=== PATIENT | female | born 1970 | race African-American/Black ===

== ENCOUNTER 2017-09-01 05:15 | Inpatient (IN) | payer OTHER ==
[2017-08-25 12:55] VITALS: BMI 31.8
[2017-09-01] MEDS ORDERED: ROPIVACAINE HCL 0.5% 30ML VIAL ONE (07:49)
[2017-09-01] MEDS ORDERED: MIDAZOLAM HCL 2 MG/2 ML SINGLE DOSE VIAL ONE (07:54)
[2017-09-01] MEDS ORDERED: PROPOFOL 20 ML ONE (08:14)
[2017-09-01] MEDS ORDERED: ROCURONIUM BROMIDE 50 MG/5 ML VIAL ONE (08:14)
[2017-09-01] MEDS ORDERED: LIDOCAINE HCL/PF 2% SDV 5ML VIAL ONE (08:18)
[2017-09-01] MEDS ORDERED: DEXAMETHASONE SOD PHOSPHATE 4 MG/1 ML VIAL ONE (08:19)
[2017-09-01] MEDS ORDERED: CLINDAMYCIN PHOSPHATE 600 MG/4 ML VIAL ONE (08:34)
[2017-09-01] MEDS ORDERED: CLINDAMYCIN 900 MG PREMIX BAG IVPB ONE (08:35)
[2017-09-01] MEDS ORDERED: GENTAMICIN 80MG PREMIX BAG IVPB ONE (08:38)
[2017-09-01] MEDS ORDERED: GENTAMICIN SO4 80 MG/2 ML VIAL ONE (08:40)
[2017-09-01] MEDS ORDERED: NEOSTIGMINE METHYLSULFATE 0.5 MG/ML - 10 ML MDV ONE (09:21)
[2017-09-01] MEDS ORDERED: GLYCOPYRROLATE 0.2 MG/1 ML VIAL ONE (09:21)
[2017-09-01] MEDS ORDERED: PROMETHAZINE HCL 25 MG/1 ML VIAL IVPUSH PRN (10:04)
[2017-09-01] MEDS ORDERED: ONDANSETRON 4 MG/2 ML VIAL IVPUSH PRN (10:05)
[2017-09-01] MEDS ORDERED: PROMETHAZINE HCL 25 MG/1 ML VIAL IVPB PRN (10:05)
[2017-09-01] MEDS ORDERED: DEXAMETHASONE SOD PHOSPHATE 4 MG/1 ML VIAL IVPUSH PRN (10:05)
[2017-09-01] MEDS ORDERED: HYDROmorphone *PCA* 10MG/50ML DISP.SYRIN PCA ONE (10:06)
[2017-09-01] MEDS ORDERED: ONDANSETRON 4 MG/2 ML VIAL ONE (10:06)
[2017-09-01] MEDS ORDERED: oxyCODONE HCL 5 MG TABLET PO PRN ×2 (10:07)
[2017-09-01] MEDS ORDERED: CLINDAMYCIN IVPB 300 MG in DEXTROSE 5%-WATER - 48 ML IVPB ONE (10:07)
--- NOTE | 2017-09-01 10:07 | HP ---
History & Physical Update - History History: No Change - Physical Physical: No Change - Assessment Assessment: No Change - Plan Plan: No Change
[2017-09-01] MEDS ORDERED: SIMETHICONE 80 MG TAB.CHEW (FP) PO PRN (10:15)
[2017-09-01] MEDS ORDERED: DEXTROSE 5%-LACTATED RINGERS 1,000 ML IV SCH (10:15)
[2017-09-01] MEDS ORDERED: HYDROmorphone *PCA* 10MG/50ML DISP.SYRIN PCA SCH (10:15)
[2017-09-01] MEDS ORDERED: LACTATED RINGERS SOLUTION 1,000 ML IV SCH (10:15)
--- NOTE | 2017-09-01 10:28 | OP ---
Operative Note - Note: Operative Date: 09/01/17 Pre-Operative Diagnosis: Leiomyomatous Uterus Operation: Total Abdominal Hysterectomy. Right salpingoophorectomy. Left salpingectomy Findings: Leiomyomatous Uterus right salpinectomy left salpingoophorectomy Post-Operative Diagnosis: Same as Pre-op Surgeon: Alva Hernandez Kiln Maintenance: Opal Cervantes Anesthesia: General Estimated Blood Loss (mls): 300 Operative Report Dictated: Yes
[2017-09-01] MEDS: CLINDAMYCIN 300 MG PREMIX IVPB 50 ML IVPB SCH (17:12)
[2017-09-01] MEDS: IBUPROFEN 800 MG/8 ML IJ IVPB PRN (18:08)
[2017-09-01 18:50] LABS: BASOPHIL 0.1 % (0-2.0); MCH 31.6 pg (25.7-33.7); MCHC 34.5 g/dl (32.0-36.0); MEAN CELL VOLUME 91.5 fl (80-96); MEAN PLT VOLUME 7.9 fl (7.5-11.1); NEUTROPHILS 88.7 % (42.8-82.8); PLATELET COUNT 273 K/MM3 (134-434); RDW 13.6 % (11.6-15.6)
[2017-09-01 19:59] LABS: ANION GAP 13 (8-16); CALCIUM 7.9 mg/dL (8.5-10.1); CO2 24 mmol/L (21-32); CREATININE 0.9 mg/dL (0.55-1.02); GLUCOSE,RANDOM 208 mg/dL (74-106)
--- NOTE | 2017-09-02 00:30 | OP ---
DATE OF OPERATION: 09/01/2017 PREOPERATIVE DIAGNOSIS: Leiomyomatous and pelvic pain. OPERATION: Total abdominal hysterectomy and bilateral salpingectomy and right oophorectomy. SURGEON: Yohana White M.D. NUCLEAR PHYSICS TEACHER: Opal Cervantes M.D. ANESTHESIA: General. ANESTHESIOLOGIST: Danny Bowling M.D. PROCEDURE: Patient was taken to the operating room, placed in supine position, prepped and draped in usual sterile fashion. A Carpio catheter was inserted into bladder. A timeout was performed in accordance with hospital regulation. Scalpel was then used to make a Pfannenstiel skin incision through the skin. Cautery was then used to go through the layers of abdominal wall to the fascia. Fascia was cut in midline and cautery was then used to open the fascia in smiling fashion. Abbey was then used to bluntly, sharply dissect the rectus muscle off the fascia. Muscle split in the midline, peritoneal cavity was then entered and carried upward and downward. Bowel was packed out of the operative field. The uterus was exteriorized. Leiomyomatous uterus and multiple myomas were noted. A hard calcified myoma as noted anterior near the bladder. Uterus was exteriorized. Round ligament was identified. Ovary on the right was noted to be abnormal. Infundibulopelvic ligament identified, clamped and cut. Round ligament identified and clamped and cut. Uterine artery was identified and clamped and cut. Vesicouterine reflection was then entered and bladder was bluntly dissected out of the operative field. On the left side uteroovarian ligament was identified and clamped and cut. Ovary was normal on the left. Uterine artery was identified and clamped and cut. Cardinal ligament identified, clamped and cut after bladder had bluntly dissected out of the operative field. The vagina was entered anteriorly and Jurgensens were then used to cut the vagina away from the cervix. Specimen was submitted to pathology. Right tube was grasped and bilaterally cut using Ligasure and submitted to pathology. Left tube was identified, clamped and cut, submitted to pathology. Hemostasis was achieved after bleeders were grasped with Loreto clamps and tied. Irrigation was done. Hemostasis was noted. Ureters were brought bilaterally and noted to be having peristalsis. Intercede was placed on the cuff. Peritoneum was then closed using 2-0 Vicryl suture. Fascia was then closed using 0 Vicryl suture. Muscle was approximated in the midline using 0 Vicryl suture. Fascia was then closed 0 Vicryl suture in 2 parts. Subcutaneous was closed using 2-0 and interrupted sutures, and skin was then closed using 3-0 Vicryl subcuticular fascia. Wound was washed and dressed. Patient tolerated procedure well, Steri-Strips had been placed. Estimated blood loss was 300 mL. YOHANA WHITE M.D. 1 [id number]
[2017-09-02] MEDS: CLINDAMYCIN 300 MG PREMIX IVPB 50 ML IVPB SCH ×2 (01:50→09:06)
[2017-09-02 07:34] LABS: BASOPHIL 0.4 % (0-2.0); EOSINOPHIL 0.2 % (0-4.5); MCH 31.5 pg (25.7-33.7); MCHC 34.5 g/dl (32.0-36.0); MEAN CELL VOLUME 91.3 fl (80-96); MEAN PLT VOLUME 7.7 fl (7.5-11.1); NEUTROPHILS 63.3 % (42.8-82.8); PLATELET COUNT 244 K/MM3 (134-434); RDW 13.8 % (11.6-15.6); WHITE BLOOD COUNT 8.3 K/mm3 (4.0-10.0)
[2017-09-02] MEDS ORDERED: HYDROmorphone HCL CARPU-JECT 1 MG/1 ML DISP.SYRIN IVPB PRN (08:18)
--- NOTE | 2017-09-02 08:18 | PN ---
Progress Note (short form) - Note Progress Note: Post op day#1.S/P LINDSEY with bilateral sapingectomy and right oophorectomy under GA uneventful.Patient stable and c/o pain score of 3-4/10.Will DC MEDICAL TECHNOLOGIST PRN and put patient PRN pain medication.No any anesthesia related problem.Patient DC from the anesthesia care.
--- NOTE | 2017-09-02 09:25 | PN ---
Progress Note, Physician Chief Complaint: Pt seen/evaluated and doing well. Pain controlled, tolerating diet (clears) No CP/SOB/F/C/WILLIS. Not yet ambulating. Carpio catheter with clear yellow urine. No flatus yet, denies VB. - Current Medication List Current Medications: Active Medications Dexamethasone Sodium Phosphate (Decadron Injection -) 4 mg IVPUSH ONCE PRN PRN Reason: NAUSEA AND/OR VOMITING Diphenhydramine HCl (Benadryl Injection -) 12.5 mg IVPUSH ONCE PRN PRN Reason: FOR ITCHING Enoxaparin Sodium (Lovenox -) 40 mg SQ DAILY SAM Fentanyl (Sublimaze Injection -) 50 mcg IVPUSH [id number] PRN PRN Reason: PAIN Stop: 09/04/17 10:05 Hydromorphone HCl (Dilaudid Injection -) 1 mg IVPB Q4H PRN PRN Reason: PAIN Clindamycin Phosphate (Cleocin 300 Mg Premix Ivpb) 50 mls @ 100 mls/hr IVPB Q8H -IV SAM Stop: 09/02/17 17:59 Last Admin: 09/02/17 09:06 Dose: 100 mls/hr Levofloxacin (Levaquin 500 Mg Premixed Ivpb -) 100 mls @ 100 mls/hr IVPB DAILY SAM Stop: 09/02/17 10:59 Dextrose/Lactated Ringer's (D5-Lr -) 1,000 mls @ 125 mls/hr IV ASDIR SAM Last Admin: 09/01/17 11:40 Dose: 300 mls Ibuprofen (Caldolor Injection -) 800 mg IVPB Q8H PRN PRN Reason: FEVER Last Admin: 09/01/17 18:08 Dose: 800 mg Oxycodone HCl (Roxicodone -) 10 mg PO Q4H PRN PRN Reason: PAIN Oxycodone HCl (Roxicodone -) 5 mg PO Q4H PRN PRN Reason: PAIN Promethazine HCl (Phenergan Injection -) 12.5 mg IVPB Q6H PRN PRN Reason: NAUSEA AND/OR VOMITING Simethicone (Mylicon -) 80 mg PO Q4H PRN PRN Reason: GAS - Objective Vital Signs: Vital Signs Temperature 98.2 F 09/02/17 06:00 Pulse Rate 80 09/02/17 06:00 Respiratory Rate 20 09/02/17 06:00 Blood Pressure 117/58 09/02/17 06:00 O2 Sat by Pulse Oximetry (%) 98 09/01/17 21:00 Constitutional: Yes: Well Nourished, No Distress, Calm Eyes: Yes: Conjunctiva Clear, EOM Intact HENT: Yes: Atraumatic, Normocephalic Neck: Yes: Supple, Trachea Midline Cardiovascular: Yes: Regular Rate and Rhythm Respiratory: Yes: Regular, CTA Bilaterally Gastrointestinal: Yes: Normal Bowel Sounds, Soft Extremities: Yes: WNL Edema: No Wound/Incision: Yes: Clean/Dry, Well Approximated Neurological: Yes: Alert, Oriented Psychiatric: Yes: Alert, Oriented Labs: CBC, BMP 09/02/17 06:30 09/01/17 06:15 Problem List - Problems (1) H/O hysterectomy with oophorectomy Code(s): KCX9525 - (2) History of hysterectomy for benign disease Code(s): Z90.710 - ACQUIRED ABSENCE OF BOTH CERVIX AND UTERUS Assessment/Plan 46 yo POD#1 s/p LINDSEY, RSO, left salpingectomy for fibroids/AUB - AFVSS - Hgb 10.9 post op - advance diet as tolerated - PO pain meds - encourage ambulation - routine post op care
[2017-09-02] MEDS: ENOXAPARIN NA (PORCINE) 40 MG/0.4 ML DISP.SYRIN SQ SCH (09:43)
[2017-09-02] MEDS ORDERED: ENOXAPARIN NA (PORCINE) 40 MG/0.4 ML DISP.SYRIN SQ SCH (10:00)
[2017-09-02] MEDS ORDERED: LEVOFLOXACIN 500 MG IVPB 100 ML IVPB SCH (10:00)
[2017-09-02] MEDS: IBUPROFEN 800 MG/8 ML IJ IVPB PRN (11:28)
[2017-09-02] MEDS: IBUPROFEN 600 MG TABLET (FP) PO PRN (17:41)
--- NOTE | 2017-09-02 22:38 | DS ---
Physical Exam-[employer] Vital Signs: Vital Signs Temperature 98.1 F 09/02/17 22:00 Pulse Rate 84 09/02/17 22:00 Respiratory Rate 20 09/02/17 22:00 Blood Pressure 140/87 09/02/17 22:00 O2 Sat by Pulse Oximetry (%) 99 09/02/17 07:20 Constitutional: Yes: Well Nourished, No Distress Gastrointestinal: Yes: Abdomen, Obese, Tenderness Breast(s): Yes: WNL Musculoskeletal: Yes: WNL Extremities: Yes: WNL Edema: No Wound/Incision: Yes: Clean/Dry, Well Approximated, Steri Strips, Open to air Labs: CBC, BMP 09/02/17 06:30 09/01/17 06:15 Discharge Summary Reason For Visit: LEIOMYOMA OF UTERUS/OVARIAN CYST Current Active Problems H/O hysterectomy with oophorectomy (Acute) History of hysterectomy for benign disease (Acute) Procedures: Principal: Abdominal myomectomy Hospital Course: Unremarkable Condition: Good - Instructions Diet, Activity, Other Instructions: Dr. Alva Hernandez Gamb Cutter discharge instructions Physical activity Resume your normal everyday activity as tolerated no heavy lifting or exercise until seen by your surgeon. You may walk unlimited noemi of and climb stairs. You may resume driving the car when you feel safe and comfortable behind the wheel. No sexual activity as instructed by Dr. Hernandez. Wound care If you have a bandage, leave it on, and keep dry for 48-72 hours. After that time discard the outer bandage. If they are tapes on the skin under the out of bandage leave them in place. They will peel off in the next 7 to 10 days. Do Not Peel them off. You may shower the day after surgery. If there are tapes present on the skin, you may shower over them. Diet There are no dietary restrictions. Eat healthy, high-fiber foods. Drink 6 to 8 glasses of liquid each day. This will assist in keeping your bowels are regular. Pain management You may take Tylenol or acetaminophen or Ibuprofen (for example, Motrin, Advil etc.) from my pain prescription medication is ordered should be taken as prescribed for moderate to severe pain. Call Dr. Hernandez for any of the following: Severe pain not relieved by medication Fever of 101 or higher Excessive bleeding or drainage on dressing Inability to urinate Call the office at [phone] for an appointment in seven days. Referrals: Alva Hernandez MD [Staff Physician] - Disposition: HOME - Home Medications Comprehensive Discharge Medication List: Ambulatory Orders Gabapentin 300 mg PO DAILY 08/25/17 Naproxen [Naprosyn -] 250 mg PO DAILY PRN 08/25/17 Oxycodone HCl/Acetaminophen [Percocet 5-325 mg Tablet -] 1 tab PO Q4H #20 tablet MDD 6 09/01/17
[2017-09-03 08:12] LABS: BASOPHIL 0.3 % (0-2.0); EOSINOPHIL 0.6 % (0-4.5); MCH 31.4 pg (25.7-33.7); MCHC 34.5 g/dl (32.0-36.0); MEAN CELL VOLUME 90.8 fl (80-96); MEAN PLT VOLUME 7.6 fl (7.5-11.1); NEUTROPHILS 64.5 % (42.8-82.8); PLATELET COUNT 276 K/MM3 (134-434); RDW 13.7 % (11.6-15.6); WHITE BLOOD COUNT 8.6 K/mm3 (4.0-10.0)
[2017-09-03] MEDS: IBUPROFEN 600 MG TABLET (FP) PO PRN ×2 (08:26→17:30)
[2017-09-03 08:31] LABS: ANION GAP 9 (8-16); CALCIUM 8.4 mg/dL (8.5-10.1); CO2 27 mmol/L (21-32); CREATININE 0.8 mg/dL (0.55-1.02); GLUCOSE,RANDOM 137 mg/dL (74-106)
[2017-09-03] MEDS: ENOXAPARIN NA (PORCINE) 40 MG/0.4 ML DISP.SYRIN SQ SCH (10:23)
--- NOTE | 2017-09-03 14:47 | PN ---
Progress Note (SOAP) - Subjective Chief Complaint: Pt with c/o fever last night. Pt with pain today pt seen at bedside this morn - Current Medications Current Medications: Active Medications Dexamethasone Sodium Phosphate (Decadron Injection -) 4 mg IVPUSH ONCE PRN PRN Reason: NAUSEA AND/OR VOMITING Diphenhydramine HCl (Benadryl Injection -) 12.5 mg IVPUSH ONCE PRN PRN Reason: FOR ITCHING Enoxaparin Sodium (Lovenox -) 40 mg SQ DAILY [facility] Last Admin: 09/03/17 10:23 Dose: 40 mg Fentanyl (Sublimaze Injection -) 50 mcg IVPUSH [id number] PRN PRN Reason: PAIN Stop: 09/04/17 10:05 Hydromorphone HCl (Dilaudid Injection -) 1 mg IVPB Q4H PRN PRN Reason: PAIN Dextrose/Lactated Ringer's (D5-Lr -) 1,000 mls @ 125 mls/hr IV ASDIR [facility] Last Admin: 09/01/17 11:40 Dose: 300 mls Ibuprofen (Caldolor Injection -) 800 mg IVPB Q8H PRN PRN Reason: FEVER Last Admin: 09/02/17 11:28 Dose: 800 mg Ibuprofen (Motrin -) 600 mg PO Q6H PRN PRN Reason: FEVER Last Admin: 09/03/17 08:26 Dose: 600 mg Oxycodone HCl (Roxicodone -) 10 mg PO Q4H PRN PRN Reason: PAIN Oxycodone HCl (Roxicodone -) 5 mg PO Q4H PRN PRN Reason: PAIN Last Admin: 09/02/17 17:41 Dose: 5 mg Promethazine HCl (Phenergan Injection -) 12.5 mg IVPB Q6H PRN PRN Reason: NAUSEA AND/OR VOMITING Simethicone (Mylicon -) 80 mg PO Q4H PRN PRN Reason: GAS - Objective Vital Signs: Vital Signs Temperature 100.3 F H 09/03/17 10:00 Pulse Rate 85 09/03/17 10:00 Respiratory Rate 20 09/03/17 10:00 Blood Pressure 131/86 09/03/17 10:00 O2 Sat by Pulse Oximetry (%) 99 09/02/17 07:20 Constitutional: Yes: Well Nourished, No Distress Gastrointestinal: Yes: WNL, Abdomen, Obese, Distention, Tenderness Wound/Incision: Yes: Steri Strips, Open to air Labs Lab Results: CBC, BMP 09/03/17 07:45 09/03/17 07:45 Assessment/Plan POD2 LINDSEY fever last night low grade temp last night Plan continue observation due to pain and fever less 24 hours
[2017-09-04] MEDS: IBUPROFEN 600 MG TABLET (FP) PO PRN (06:43)
--- NOTE | 2017-09-04 07:42 | PN ---
Progress Note, Physician Chief Complaint: Pt seen/evaluated. Overall feeling well. Pt with some incisional pain otherwise feeling well. Denies CP/SOB/leg pain/fevers/chills. Tmax 100.3 yesterday at 10am, afebrile overnight. No focal source of fever. - Current Medication List Current Medications: Active Medications Dexamethasone Sodium Phosphate (Decadron Injection -) 4 mg IVPUSH ONCE PRN PRN Reason: NAUSEA AND/OR VOMITING Diphenhydramine HCl (Benadryl Injection -) 12.5 mg IVPUSH ONCE PRN PRN Reason: FOR ITCHING Enoxaparin Sodium (Lovenox -) 40 mg SQ DAILY [facility] Last Admin: 09/03/17 10:23 Dose: 40 mg Fentanyl (Sublimaze Injection -) 50 mcg IVPUSH [id number] PRN PRN Reason: PAIN Stop: 09/04/17 10:05 Hydromorphone HCl (Dilaudid Injection -) 1 mg IVPB Q4H PRN PRN Reason: PAIN Dextrose/Lactated Ringer's (D5-Lr -) 1,000 mls @ 125 mls/hr IV ASDIR [facility] Last Admin: 09/01/17 11:40 Dose: 300 mls Ibuprofen (Caldolor Injection -) 800 mg IVPB Q8H PRN PRN Reason: FEVER Last Admin: 09/02/17 11:28 Dose: 800 mg Ibuprofen (Motrin -) 600 mg PO Q6H PRN PRN Reason: FEVER Last Admin: 09/04/17 06:43 Dose: 600 mg Oxycodone HCl (Roxicodone -) 10 mg PO Q4H PRN PRN Reason: PAIN Oxycodone HCl (Roxicodone -) 5 mg PO Q4H PRN PRN Reason: PAIN Last Admin: 09/02/17 17:41 Dose: 5 mg Promethazine HCl (Phenergan Injection -) 12.5 mg IVPB Q6H PRN PRN Reason: NAUSEA AND/OR VOMITING Simethicone (Mylicon -) 80 mg PO Q4H PRN PRN Reason: GAS - Objective Vital Signs: Vital Signs Temperature 99.0 F 09/04/17 06:00 Pulse Rate 80 09/04/17 06:00 Respiratory Rate 20 09/04/17 06:00 Blood Pressure 132/89 09/04/17 06:00 O2 Sat by Pulse Oximetry (%) 99 09/02/17 07:20 Constitutional: Yes: Well Nourished, No Distress, Calm Eyes: Yes: Conjunctiva Clear, EOM Intact HENT: Yes: Atraumatic, Normocephalic Neck: Yes: Supple, Trachea Midline Cardiovascular: Yes: Regular Rate and Rhythm Respiratory: Yes: Regular, CTA Bilaterally Gastrointestinal: Yes: Normal Bowel Sounds, Soft Extremities: Yes: WNL Edema: No Peripheral Pulses WNL: Yes Wound/Incision: Yes: Clean/Dry, Well Approximated Neurological: Yes: Alert, Oriented Psychiatric: Yes: Alert, Oriented Labs: CBC, BMP 09/03/17 07:45 09/03/17 07:45 Problem List - Problems (1) H/O hysterectomy with oophorectomy Code(s): [id number] - (2) History of hysterectomy for benign disease Code(s): Z90.710 - ACQUIRED ABSENCE OF BOTH CERVIX AND UTERUS Assessment/Plan 46 yo POD#3 s/p LINDSEY, RSO, left salpingectomy for fibroids/AUB - Afebrile overnight, exam benign, will monitor temp this a.m. if afebrile today to consider discharge home - Hgb 12.0 post op day 2, stable - regular diet - PO pain meds - encourage ambulation, lovenox for VTE PPx - routine post op care
[2017-09-04] MEDS: ENOXAPARIN NA (PORCINE) 40 MG/0.4 ML DISP.SYRIN SQ SCH (09:29)
--- NOTE | 2017-09-04 11:26 | PATH ---
Surgical Pathology Report Patient Name: ANTONIA PHILIPPE [facility]. Rec. #: [id number] /Age/Gender: 1970 (Age: 46) / F Account: [id number] Location: [facility] OBS/LEARNING PROGRAM MANAGER Taken: 09/01/2017 Received: 09/01/2017 Reported: 09/04/2017 Physicians: Alva Hernandez M.D. Specimen(s) Received UTERUS, CERVIX, RIGHT OVARY Clinical History Leiomyoma of uterus, ovarian cyst Final Diagnosis UTERUS, CERVIX, RIGHT OVARY AND BILATERAL FALLOPIAN TUBES, HYSTERECTOMY AND SALPINGO-OOPHORECTOMY: UTERUS SHOWING SECRETORY ENDOMETRIUM AND MULTIPLE LEIOMYOMAS, WITH THE LARGEST LEIOMYOMA SHOWING DYSTROPHIC CALCIFICATION AND OSSIFICATION (COMBINED WEIGHT: APPROXIMATELY 350 GRAMS). CERVIX SHOWING INFLAMED ENDOCERVICAL POLYP, WITH REACTIVE/REPARATIVE CHANGES. RIGHT OVARY SHOWING HEMORRHAGIC CORPUS LUTEUM CYSTS. BILATERAL FALLOPIAN TUBES WITH NO PATHOLOGIC FINDINGS. Electronically Signed Huma Rodríguez M.D. Gross Description Received in formalin labeled "right ovary, uterus, cervix," is a 322 g hysterectomy specimen, comprised of a uterus, attached cervix and attached right fallopian tube and right ovary. The left fallopian tube is separately received within the same container. Additionally, there is a calcified fibroid separately received within the same container. The hysterectomy specimen measures 10.5 cm from superior to inferior, 8.8 cm from anterior to posterior and 7.2 cm from left to right. The attached cervix measures 3 cm in length and averages 3 cm in diameter. The ectocervix is boone-pink, smooth and glistening. There is a 0.8 x 0.4 x 0.2 cm pink-boone endocervical polyp present on the posterior aspect. The endometrial cavity measures 5 cm in length and 3.4 cm from cornu to cornu. The endometrium is boone-red and lush, averaging 0.4 cm in thickness. The myometrium displays multiple intramural nodules, measuring up to 4.5 cm in greatest dimension. The cut surface of the nodules is boone, firm to rubbery and displays whorled architecture. No areas of hemorrhage or necrosis are identified. The remaining myometrium is boone-pink and trabeculated, measuring up to 3.5 cm in thickness. The separately received fibroid is 28 g and measures 4.0 x 3.3 x 2.6 cm. Sectioning reveals calcified parenchyma. The attached right fimbriated fallopian tube measures 2.8 cm in length. The outer surface is guidry purple and smooth. Sectioning reveals an unremarkable lumen. The right ovary measures 3.5 x 2.5 x 2.0 cm. The outer surface is boone-red and smooth. Sectioning reveals a 1.4 cm in greatest dimension hemorrhagic cyst as well as a 1.3 cm in greatest dimension hemorrhagic corpus luteum. The remaining ovarian parenchyma is unremarkable. The separately received left fimbriated fallopian tube measures 3 cm in length. The outer surface is guidry purple and smooth. Sectioning reveals unremarkable lumen. Insurance Follow Up Representative sections are submitted in 17 cassettes as follows: 1-anterior cervix; 2-posterior cervix with endocervical polyp; 0-0-wssugbgq endomyometrium; 3-5-umlvftlcc endomyometrium; 7-8-largest intramural nodule; 9-additional intramural nodules; 53-31-qlcuhmarij received calcified fibroid, following decalcification; 12-right fallopian tube fimbria; 13-cross sections of right fallopian tube; 14-15-right ovary; 16-left fallopian tube fimbria; 17-cross sections of left fallopian tube. 09/01/2017 saudi09/01/2017
[2017-09-04 12:56] VITALS: BP 134/83; PULSE 83; TEMP 99.5
== END 2017-09-04 13:35 | disposition home or self-care (01) | DRG 519 ==
LOC: JSAMEDAYSX 05:15 → EDSTATUS 08:00 → J3W 14:10
PROVIDERS: ADMIT Obstetrics & Gynecology; ATTEND Obstetrics & Gynecology
PROC: 0UT70ZZ Resection of Bilateral Fallopian Tubes, Open Approach (ICD-10-PCS; 2017-09-01)
PROC: 0UT00ZZ Resection of Right Ovary, Open Approach (ICD-10-PCS; 2017-09-01)
PROC: 0UT90ZZ Resection of Uterus, Open Approach (ICD-10-PCS; principal; 2017-09-01 08:00)
DX: D25.9 Leiomyoma of uterus, unspecified (principal); Z68.31 Body mass index [BMI] 31.0-31.9, adult; R50.9 Fever, unspecified
CPT/HCPCS: 36415; 80048; 84703; 85025; 86850; 86900; 86901; 88309-TC; 94760

== ENCOUNTER 2021-11-20 04:30 | Day surgery (SDC) | payer OTHER ==
[2021-11-15 10:31] VITALS: BMI 30.1
[2021-11-20] MEDS ORDERED: LIDOCAINE HCL/PF 1% SDV 5ML VIAL ONE (07:21)
[2021-11-20] MEDS ORDERED: BUPIVACAINE HCL/PF 0.5% (5MG/ML) 10 ML VIAL ONE (07:22)
[2021-11-20] MEDS ORDERED: BUPIVACAINE HCL/PF 0.75% 10 ML VIAL ONE (07:22)
[2021-11-20] MEDS ORDERED: DEXAMETHASONE SOD PHOSPHATE 10 MG/1 ML VIAL ONE (07:36)
[2021-11-20] MEDS ORDERED: LIDOCAINE HCL 1% PRESERVATIVE FREE - 30ML VIAL IJ ONE (08:30)
[2021-11-20] MEDS ORDERED: IOHEXOL 180 MG/1 ML ML IJ ONE (08:32)
[2021-11-20] MEDS ORDERED: BUPIVACAINE HCL/PF 0.75% 10 ML VIAL NR ONE (08:37)
[2021-11-20 08:57] VITALS: TEMP 98.1
[2021-11-20 09:36] VITALS: BP 124/72; PULSE 59
== END 2021-11-20 09:35 | disposition home or self-care (01) ==
LOC: JASU-SURG 04:30
PROVIDERS: ATTEND Pain Medicine Pain Medicine
PROC: 3E0T33Z Introduction of Anti-inflammatory into Peripheral Nerves and Plexi, Percutaneous Approach (ICD-10-PCS; 2021-11-20)
PROC: 3E0T3BZ Introduction of Anesthetic Agent into Peripheral Nerves and Plexi, Percutaneous Approach (ICD-10-PCS; principal; 2021-11-20 08:00)
DX: M47.816 Spondylosis without myelopathy or radiculopathy, lumbar region (principal)
CPT/HCPCS: 76000-TC-FY; J1100

== ENCOUNTER 2022-10-27 14:37 | Emergency (ER) | payer OTHER ==
[2022-10-27 14:51] VITALS: BP 122/76; PULSE 76; RESP 18; TEMP 98.9; BMI 26.5
[2022-10-27] MEDS ORDERED: KETOROLAC TROMETHAMINE 30 MG/1 ML VIAL IVPUSH ONE (16:39)
[2022-10-27 16:41] LABS: BASO % 0.7 % (0-2.0); HEMATOCRIT 40.3 % (32.4-45.2); HEMOGLOBIN 13.2 GM/dL (10.7-15.3); MCH 29.8 pg (25.7-33.7); MCHC 32.8 g/dl (32.0-36.0); MEAN PLT VOLUME 7.7 fl (7.5-11.1); MONO % 5.7 % (3.8-10.2); NEUT % 57.6 % (42.8-82.8); PLATELET COUNT 353 10^3/uL (134-434); RBC 4.43 M/mm3 (3.60-5.2); RDW 13.9 % (11.6-15.6); WHITE BLOOD COUNT 7.5 K/mm3 (4.0-10.0)
[2022-10-27 16:44] LABS: EPI CELLS 6 /uL (0-25.1); HYALINE CASTS 0 /uL (0-3.1); URINE APPEARANCE CLEAR; URINE BACTERIA 7817 /uL (0-1359); URINE BILIRUBIN NEGATIVE (NEGATIVE); URINE COLOR YELLOW; URINE GLUCOSE (UA) 3+ (NEGATIVE); URINE KETONE TRACE (NEGATIVE); URINE LEUK ESTERASE NEGATIVE (NEGATIVE); URINE NITRITE NEGATIVE (NEGATIVE); URINE PROTEIN NEGATIVE (NEGATIVE); URINE RBC 21 /uL (0-23.9); URINE UROBILINOGEN 0.2 mg/dL (0.2-1.0); URINE WBC 16 /uL (0-25.8)
[2022-10-27] MEDS ORDERED: SODIUM CHLORIDE 0.9% 500 ML INFUS.BAG IV ONE (16:59)
[2022-10-27] MEDS ORDERED: KETOROLAC TROMETHAMINE 30 MG/1 ML VIAL ONE ×2 (17:21→17:26)
[2022-10-27 18:57] LABS: ALBUMIN 4.4 g/dl (3.4-5.0); BLOOD UREA NITROGEN 22.2 mg/dL (7-18); CALCIUM 10.1 mg/dL (8.5-10.1)
[2022-10-27 19:02] LABS: BILIRUBIN,TOTAL 0.4 mg/dL (0.2-1)
[2022-10-27] MEDS ORDERED: NITROFURANTOIN MACROCRYSTAL 50 MG CAPSULE (FP) PO ONE (20:30)
[2022-10-27] MEDS ORDERED: NITROFURANTOIN MACROCRYSTAL 50 MG CAPSULE (FP) ONE (20:33)
== END 2022-10-27 20:57 | disposition home or self-care (01) ==
LOC: JERFT 14:37 → JER 14:37 → JERFT 20:57
PROC: 3E0333Z Introduction of Anti-inflammatory into Peripheral Vein, Percutaneous Approach (ICD-10-PCS; principal; 2022-10-27)
PROC: 3E0337Z Introduction of Electrolytic and Water Balance Substance into Peripheral Vein, Percutaneous Approach (ICD-10-PCS; 2022-10-27)
DX: N39.0 Urinary tract infection, site not specified (principal); R10.31 Right lower quadrant pain
CPT/HCPCS: 36415; 74177-TC; 80053; 81003; 85025; 87086; 87186; 99285-25; Q9967

== ENCOUNTER 2022-12-09 13:11 | Emergency (ER) | payer OTHER ==
[2022-12-09 13:36] VITALS: RESP 17; TEMP 98.1; BMI 26.4
[2022-12-09 16:02] LABS: BASO % 0.6 % (0-2.0); EOS % 0.9 % (0-4.5); HEMATOCRIT 37.1 % (32.4-45.2); HEMOGLOBIN 12.4 GM/dL (10.7-15.3); LYMPH % 31.4 % (8-40); MCH 30.8 pg (25.7-33.7); MCHC 33.3 g/dl (32.0-36.0); MEAN CELL VOLUME 92.5 fl (80-96); MEAN PLT VOLUME 7.1 fl (7.5-11.1); NEUT % 60.1 % (42.8-82.8); PLATELET COUNT 381 10^3/uL (134-434); RBC 4.01 M/mm3 (3.60-5.2); RDW 14.1 % (11.6-15.6); WHITE BLOOD COUNT 7.8 K/mm3 (4.0-10.0)
[2022-12-09 18:00] VITALS: BP 110/70; PULSE 70
== END 2022-12-09 18:01 | disposition home or self-care (01) ==
LOC: JER 13:11
DX: R05.9 Cough, unspecified (principal)
CPT/HCPCS: 0241U-QW; 36415; 71046-TC-FY; 85025; 87070; 99284-25

== ENCOUNTER 2023-12-12 03:53 | Day surgery (SDC) | payer OTHER ==
[2023-12-05 13:55] VITALS: BMI 27.8
[2023-12-12] MEDS ORDERED: LIDOCAINE HCL/PF 1% SDV 5ML VIAL ONE (07:26)
[2023-12-12] MEDS ORDERED: DEXAMETHASONE SOD PHOSPHATE 10 MG/1 ML VIAL ONE (07:26)
[2023-12-12] MEDS: LIDOCAINE HCL 1% PRESERVATIVE FREE - 30ML VIAL IJ ONE (12:39)
[2023-12-12] MEDS: IOHEXOL 180 MG/1 ML ML IJ ONE (12:40)
[2023-12-12] MEDS: DEXAMETHASONE SOD PHOSPHATE 10 MG/1 ML VIAL IVPUSH ONE (12:40)
[2023-12-12 13:00] VITALS: RESP 20
[2023-12-12 13:44] VITALS: BP 120/68; PULSE 70; TEMP 97.8
[2023-12-12] MEDS ORDERED: ACETAMINOPHEN 500 MG TABLET (FP) PO PRN (13:50)
== END 2023-12-12 13:30 | disposition home or self-care (01) ==
LOC: JASU-SURG 03:53
PROVIDERS: ATTEND Pain Medicine Pain Medicine
PROC: 3E0R3BZ Introduction of Anesthetic Agent into Spinal Canal, Percutaneous Approach (ICD-10-PCS; 2023-12-12)
PROC: 3E0R33Z Introduction of Anti-inflammatory into Spinal Canal, Percutaneous Approach (ICD-10-PCS; principal; 2023-12-12 14:00)
DX: M48.061 Spinal stenosis, lumbar region without neurogenic claudication (principal); M54.16 Radiculopathy, lumbar region
CPT/HCPCS: 76000-TC-FY; J1100